=== PATIENT | female | born 2000 | race Caucasian/White ===

== ENCOUNTER 2019-11-24 13:56 | Observation (INO) ==
[2019-11-24 14:58] LABS: Bilirubin,Urine Negative (Negative); Blood,Urine Negative (Negative); Clarity,Urine Clear (Clear); Color,Urine Yellow (Yellow); Glucose,Urine (UA) Normal (Normal); Ketones,Urine Negative (Negative); Leukocyte Esterase,Urine Small (Negative); Nitrite,Urine Negative (Negative); PH,Urine 7.5 pH Units (5.0-8.0); Protein,Urine Negative (Neg-Trace); Specific Gravity,Urine 1.016 (1.010-1.025); Urobilinogen,Urine Normal (Normal)
[2019-11-24 15:09] LABS: Bacteria,Urine None Seen per hpf (None-Few); Hyaline Casts,Urine None Seen per lpf (None-Few); RBC,Urine 0-3 per hpf (0-3); Squamous Epithelial Cell,Urine Many per lpf (None-Few); WBC,Urine 0-3 per hpf (0-3)
== END 2019-11-24 17:14 | disposition home or self-care (01) ==
LOC: 1NENULAB
PROVIDERS: ADMIT Registered Nurse; ATTEND Registered Nurse

== ENCOUNTER 2019-12-08 09:54 | Observation (INO) ==
[2019-12-08 10:18] LABS: Bilirubin,Urine Negative (Negative); Blood,Urine Negative (Negative); Clarity,Urine Cloudy (Clear); Color,Urine Yellow (Yellow); Glucose,Urine (UA) Normal (Normal); Ketones,Urine Negative (Negative); Leukocyte Esterase,Urine Small (Negative); Nitrite,Urine Negative (Negative); Protein,Urine Negative (Neg-Trace); Urobilinogen,Urine Normal (Normal)
[2019-12-08 10:21] LABS: Bacteria,Urine None Seen per hpf (None-Few); Hyaline Casts,Urine None Seen per lpf (None-Few); RBC,Urine 0-3 per hpf (0-3); Squamous Epithelial Cell,Urine Many per lpf (None-Few)
== END 2019-12-08 10:42 | disposition home or self-care (01) ==
LOC: 1NENULAB
PROVIDERS: ADMIT Advanced Practice Midwife; ATTEND Advanced Practice Midwife

== ENCOUNTER 2020-01-10 21:32 | Inpatient (IN) ==
[2020-01-10] MEDS ORDERED: Metoclopramide 10 MG/2 ML VIAL IVP PRN (21:44)
[2020-01-10] MEDS ORDERED: Famotidine 20 MG/2 ML VIAL IVP PRN (21:44)
[2020-01-10] MEDS ORDERED: Ondansetron 4 MG/2 ML VIAL IVP PRN (21:44)
[2020-01-10] MEDS ORDERED: Naloxone 0.4 MG/ML INJ IVP PRN (21:44)
[2020-01-10] MEDS ORDERED: Lidocaine 1% 20 ML MDV ID PRN (21:44)
[2020-01-10] MEDS ORDERED: Azithromycin 500 MG in 0.9 % Sodium Chloride 250 ML IVPB ONE (21:44)
[2020-01-10] MEDS ORDERED: Oxytocin 20 units/ LR 1000 mL 20 UNIT/1,000 ML BAG IVC SCH (21:45)
[2020-01-10 22:08] LABS: Basophils % 0.2 %; Eosinophils % 0.3 %; Hematocrit 41.6 % (35.3-44.9); Hemoglobin 14.4 g/dL (11.5-15.4); Immature Granulocytes % 0.3 % (0-4); Lymphocytes # 3.4 K/mcL (0.6-4.6); Lymphocytes % 27.9 %; Mean Corpuscular HGB Conc 34.6 g/dL (31.6-35.5); Mean Platelet Volume 12.9 fL (9.4-12.4); Monocytes % 8.2 %; Neutrophils # 7.6 K/mcL (1.6-8.9); Platelet Count 186 K/mcL (140-400); Red Blood Count 4.12 M/mcL (3.82-4.97); Red Cell Distribution Width 12.5 % (11.5-14.5); Segmented Neutrophils % 63.1 %; White Blood Count 12.1 K/mcL (4.3-11.1)
[2020-01-10 22:14] LABS: Amphetamine Screen,Urine Negative ng/mL (Cutoff=1000); Barbiturate Screen,Urine Negative ng/mL (Cutoff=200); Benzodiazepines Screen,Urine Negative ng/mL (Cutoff=200); Cannabinoid Screen,Urine Negative ng/mL (Cutoff = 50); Cocaine Screen,Urine Negative ng/mL (Cutoff= 300); Opiate Screen,Urine Negative ng/mL (Cutoff=300); Phencyclidine Screen,Urine Negative ng/mL (Cutoff=25)
[2020-01-10] MEDS: Ringers Solution, Lactated 1,000 ML IVC SCH (23:33)
[2020-01-11] MEDS: *HR* FentaNYL (PF) 100 MCG/2 ML VIAL IVP PRN ×2 (05:17→06:33)
[2020-01-11] MEDS: Ringers Solution, Lactated 1,000 ML IVC SCH ×3 (06:48→09:51)
[2020-01-11] MEDS ORDERED: EPHEDrine 50 MG/ML VIAL IVP PRN (08:08)
[2020-01-11] MEDS ORDERED: Epidural Premix (fent/bupiv) 110 ML EP SCH (08:15)
[2020-01-11] MEDS ORDERED: Terbutaline 1 MG/ML VIAL SQ ONE (12:20)
[2020-01-11] MEDS ORDERED: Ketamine *HR* 500 MG/10 ML MDV ONE (12:41)
[2020-01-11] MEDS ORDERED: 0.9 % Sodium Chloride 250 ML ONE (12:42)
[2020-01-11] MEDS ORDERED: Ondansetron 4 MG/2 ML VIAL ONE (12:43)
[2020-01-11] MEDS ORDERED: Ketorolac 30 MG/ML VIAL ONE (12:43)
[2020-01-11] MEDS ORDERED: Dexamethasone 4 MG/ML VIAL ONE (12:43)
[2020-01-11] MEDS ORDERED: Lidocaine/EPI 1:200k 2% PF 20 ML VIAL ONE (12:44)
[2020-01-11] MEDS ORDERED: *HR* Succinylcholine 200 MG/10 ML VIAL IVP ONE (12:44)
[2020-01-11] MEDS ORDERED: *HR* Morphine Sulfate/PF 10 MG/10 ML AMPUL ONE (12:51)
[2020-01-11] MEDS ORDERED: *HR* Promethazine 25 MG/ML VIAL IVP PRN (13:00)
[2020-01-11] MEDS ORDERED: Acetaminophen IV 1,000 MG/100 ML INFUS..BTL IVPB ONE (13:01)
[2020-01-11] MEDS ORDERED: *HR* Oxytocin 10 UNIT/ML VIAL IM ONE (13:12)
[2020-01-11] MEDS ORDERED: Ringers Solution, Lactated 1,000 ML ONE (13:12)
[2020-01-11] MEDS ORDERED: Sennosides 8.6 MG TABLET PO PRN (16:23)
[2020-01-11] MEDS ORDERED: Metoclopramide 10 MG/2 ML VIAL IVP PRN (16:23)
[2020-01-11] MEDS ORDERED: Rho Immune Globulin 1,500 UNIT SYRINGE IM ONE (16:23)
[2020-01-11] MEDS ORDERED: *HR* OxyCODONE/APAP 5/325 TABLET PO PRN (16:23)
[2020-01-11] MEDS ORDERED: Ondansetron 4 MG/2 ML VIAL IVP PRN (16:23)
[2020-01-11] MEDS ORDERED: Oxytocin 20 units/ LR 1000 mL 20 UNIT/1,000 ML BAG IVC SCH (16:23)
[2020-01-11] MEDS ORDERED: Simethicone 80 MG TAB.CHEW PO PRN (16:23)
[2020-01-11] MEDS ORDERED: Ringers Solution, Lactated 1,000 ML IVC SCH (16:23)
[2020-01-11] MEDS: metroNIDAZOLE 500 MG TABLET PO SCH (20:38)
[2020-01-11] MEDS: cephALEXin 500 MG CAPSULE PO SCH (20:38)
[2020-01-11] MEDS: Ibuprofen 600 MG TABLET PO PRN (20:38)
[2020-01-12 05:57] LABS: Basophils % 0.2 %; Hematocrit 33.8 % (35.3-44.9); Immature Granulocytes % 0.6 % (0-4); Lymphocytes # 3.6 K/mcL (0.6-4.6); Lymphocytes % 16.3 %; Mean Corpuscular HGB Conc 34.3 g/dL (31.6-35.5); Mean Corpuscular Hemoglobin 34.6 pg (28.0-33.3); Mean Corpuscular Volume 100.9 fL (83.0-100.0); Mean Platelet Volume 12.4 fL (9.4-12.4); Monocytes # 1.7 K/mcL (0.0-1.3); Monocytes % 7.8 %; Platelet Count 165 K/mcL (140-400); Red Blood Count 3.35 M/mcL (3.82-4.97); Red Cell Distribution Width 12.4 % (11.5-14.5); Segmented Neutrophils % 75.1 %
[2020-01-12 06:04] LABS: Hemoglobin 11.6 g/dL (11.5-15.4); Neutrophils # 16.7 K/mcL (1.6-8.9); White Blood Count 22.2 K/mcL (4.3-11.1)
[2020-01-12 07:44] VITALS: BP 138/84
[2020-01-12] MEDS: metroNIDAZOLE 500 MG TABLET PO SCH (07:57)
[2020-01-12] MEDS: cephALEXin 500 MG CAPSULE PO SCH (07:57)
[2020-01-12] MEDS: Ibuprofen 600 MG TABLET PO PRN (07:57)
[2020-01-12] MEDS ORDERED: IRON PO SCH (09:00)
[2020-01-12] MEDS ORDERED: PNV CALCIUM PO SCH (09:00)
[2020-01-12] MEDS ORDERED: FOLIC ACID PO SCH (09:00)
[2020-01-12] MEDS ORDERED: Prenatal Vit/FA 1 EACH TABLET PO SCH (09:00)
[2020-01-12] MEDS ORDERED: [UNRECOGNIZED DRUG - OTHER] PO SCH (09:00)
== END 2020-01-12 14:30 | disposition home or self-care (01) | DRG 540 ==
LOC: 1NENULAB → 1NENUOBS 01-11 15:40
PROVIDERS: ADMIT Obstetrics & Gynecology; ATTEND Obstetrics & Gynecology

== ENCOUNTER 2021-03-19 09:49 | Inpatient (IN) ==
[2021-03-19] MEDS ORDERED: Oxytocin 20 units/ LR 1000 mL 20 UNIT/1,000 ML BAG IVC ONE (10:01)
[2021-03-19] MEDS ORDERED: Ringers Solution, Lactated 1,000 ML IVC ONE (10:01)
[2021-03-19] MEDS ORDERED: Metoclopramide 10 MG/2 ML VIAL IVP ONE (10:01)
[2021-03-19] MEDS ORDERED: Azithromycin 500 MG in 0.9 % Sodium Chloride 250 ML IVPB PRN (10:01)
[2021-03-19] MEDS ORDERED: CeFAZolin 2,000MG/50ML DUPLEX 2,000 MG/50 ML BAG IVPB ONE (10:01)
[2021-03-19] MEDS ORDERED: Famotidine 20 MG/2 ML VIAL IVP ONE (10:01)
[2021-03-19] MEDS ORDERED: Ondansetron 4 MG/2 ML VIAL IVP PRN ×2 (10:03→15:32)
[2021-03-19] MEDS ORDERED: Naloxone 0.4 MG/ML INJ IVP PRN (10:03)
[2021-03-19] MEDS ORDERED: Ringers Solution, Lactated 1,000 ML IVC SCH (10:15)
[2021-03-19] MEDS ORDERED: *HR* HYDROmorphone PF 0.5 MG/0.5 ML SYRINGE IVP PRN (10:25)
[2021-03-19] MEDS ORDERED: *HR* Labetalol 20 MG/4 ML SYRINGE IVP PRN (10:25)
[2021-03-19] MEDS ORDERED: *HR* Meperidine 25 MG/ML SYRINGE IVP PRN (10:25)
[2021-03-19] MEDS ORDERED: Promethazine 6.25 MG in Water for inj. (sterile) 20 ML IVPB PRN (10:25)
[2021-03-19] MEDS ORDERED: *HR* Nalbuphine 10 MG/ML AMPUL IV PRN (10:28)
[2021-03-19] MEDS ORDERED: Albuterol 2.5 MG/3 ML NEBULIZER IH ONE (10:34)
[2021-03-19] MEDS ORDERED: *HR* Midazolam HCl 2 MG/2 ML VIAL ONE (10:35)
[2021-03-19] MEDS ORDERED: *HR* Morphine Sulfate/PF 10 MG/10 ML AMPUL ONE (10:35)
[2021-03-19] MEDS ORDERED: *HR* FentaNYL (PF) 100 MCG/2 ML VIAL ONE (10:35)
[2021-03-19] MEDS ORDERED: EPHEDrine 50 MG/ML VIAL ONE (10:35)
[2021-03-19] MEDS ORDERED: Ketorolac 30 MG/ML VIAL ONE (10:37)
[2021-03-19] MEDS ORDERED: Ondansetron 4 MG/2 ML VIAL ONE (10:37)
[2021-03-19] MEDS ORDERED: *HR* Oxytocin 10 UNIT/ML VIAL IM ONE (10:39)
[2021-03-19 11:21] LABS: Basophils % 0.4 %; Eosinophils % 0.4 %; Hematocrit 37.9 % (35.3-44.9); Hemoglobin 12.7 g/dL (11.5-15.4); Immature Granulocytes % 0.4 % (0-4); Lymphocytes # 1.7 K/mcL (0.6-4.6); Lymphocytes % 20.4 %; Mean Corpuscular HGB Conc 33.5 g/dL (31.6-35.5); Mean Corpuscular Hemoglobin 33.1 pg (28.0-33.3); Mean Corpuscular Volume 98.7 fL (83.0-100.0); Mean Platelet Volume 11.9 fL (9.4-12.4); Monocytes # 0.7 K/mcL (0.0-1.3); Monocytes % 8.3 %; Neutrophils # 5.9 K/mcL (1.6-8.9); Platelet Count 213 K/mcL (140-400); Red Blood Count 3.84 M/mcL (3.82-4.97); Red Cell Distribution Width 12.9 % (11.5-14.5); Segmented Neutrophils % 70.1 %; White Blood Count 8.4 K/mcL (4.3-11.1)
[2021-03-19 11:51] LABS: Amphetamine Screen,Urine Negative ng/mL (Cutoff=1000); Barbiturate Screen,Urine Negative ng/mL (Cutoff=200); Benzodiazepines Screen,Urine Negative ng/mL (Cutoff=200); Cannabinoid Screen,Urine Positive ng/mL (Cutoff = 50); Cocaine Screen,Urine Negative ng/mL (Cutoff= 300); Opiate Screen,Urine Negative ng/mL (Cutoff=300); Phencyclidine Screen,Urine Negative ng/mL (Cutoff=25)
[2021-03-19] MEDS ORDERED: *HR* Promethazine 25 MG/ML VIAL ONE (12:44)
[2021-03-19] MEDS ORDERED: *HR* Magnesium Sulfate 1 GM/2 ML VIAL ONE (12:45)
[2021-03-19] MEDS ORDERED: *HR* Phenylephrine 10 MG/ML VIAL ONE (13:17)
[2021-03-19] MEDS ORDERED: EPINEPHrine 1 MG/ML VIAL ONE (13:17)
[2021-03-19] MEDS ORDERED: Oxytocin 20 units/ LR 1000 mL 20 UNIT/1,000 ML BAG IVC SCH (15:32)
[2021-03-19] MEDS ORDERED: *HR* OxyCODONE Immed Rel 5 MG TABLET PO PRN (15:32)
[2021-03-19] MEDS ORDERED: Simethicone 80 MG TAB.CHEW PO PRN (15:32)
[2021-03-19] MEDS ORDERED: Metoclopramide 10 MG/2 ML VIAL IVP PRN (15:32)
[2021-03-19] MEDS ORDERED: Methylergonovine 0.2 MG/ML AMPUL IM ONE (17:33)
[2021-03-19] MEDS: Acetaminophen 325 MG TABLET PO SCH ×2 (18:15→23:42)
[2021-03-19] MEDS: Ibuprofen 600 MG TABLET PO SCH ×2 (18:16→23:42)
[2021-03-20] MEDS: Acetaminophen 325 MG TABLET PO SCH ×2 (06:02→14:41)
[2021-03-20] MEDS: Ibuprofen 600 MG TABLET PO SCH ×2 (06:02→14:42)
[2021-03-20 07:53] VITALS: BP 130/77
[2021-03-20] MEDS ORDERED: Prenatal Vit/FA 1 EACH TABLET PO SCH (09:00)
== END 2021-03-20 14:45 | disposition home or self-care (01) | DRG 540 ==
LOC: 1NENULAB 09:49 → 1NENUOBS 15:26
PROVIDERS: ADMIT Obstetrics & Gynecology; ATTEND Obstetrics & Gynecology